=== PATIENT | female | born 1980 | race Caucasian/White ===

== ENCOUNTER 2022-04-04 13:52 | Emergency (ER) | payer OTHER ==
[~2022-04-04] VITALS: Ht 165.1 cm; Wt 120.2 kg
[~2022-04-04 13:52] MED LIST: CHROMIUM PICO400 MCG PO; DILAUDID2 MG PO; DOXYCYCLINE MO100 MG PO; IBUPROFEN600 MG PO; LEVSIN-SL0.125 MG SL; PSEUDOEPHEDRINE60 MG PO; SUMATRIPTAN SU100 MG PO; VITAMIN D250000 UNIT PO; [UNRECOGNIZED DRUG - OTHER]; [UNRECOGNIZED DRUG - OTHER] TOP
--- NOTE | 2022-04-05 20:09 | EKG ---
[facility] [address] [facility] [place], [place] [address] Signed Normal sinus rhythm Normal ECG No previous ECGs available Confirmed by BLIL CORTES MD ([id number]) on 04/05/2022 8:09:12 PM Electronically Signed By: BILL CORTES MD 04/05/222008 PATIENT NAME: ANTELMO GOULD Electrocardiogram DATE OF : 82 PHYSICIAN: BILL CORTES MD REPORT #: [id number] REPORT IS CONFIDENTIAL AND NOT TO BE RELEASED WITHOUT AUTHORIZATION
== END 2022-04-04 15:54 | disposition home or self-care (01) ==
LOC: ED 13:52
DX: G43.401 Hemiplegic migraine, not intractable, with status migrainosus (principal); Z87.891 Personal history of nicotine dependence; Z79.899 Other long term (current) drug therapy; Z88.5 Allergy status to narcotic agent; Z88.8 Allergy status to other drugs, medicaments and biological substances
CPT/HCPCS: 36415; 70450; 70496; 70498; 71045; 80053; 84484; 85025; 85060; 85610; 85730; 93005; 93010; J0780; J1100; J1200; J7030; Q9967

== ENCOUNTER 2023-03-18 07:40 | Day surgery (SDC) | payer OTHER ==
[2023-03-16 08:40] VITALS: BP 111/76
[2023-03-16 09:14] LABS: BILIRUBIN, URINE NEGATIVE (negative); BLOOD/HGB, URINE LARGE (Negative); KETONE, URINE NEGATIVE (Negative); LEUK ESTERASE, URINE LARGE (negative); NITRITE, URINE POSITIVE (negative)
[2023-03-16 09:31] LABS: BACTERIA, URINE 1+ /hpf (negative); CASTS, URINE NONE SEEN \\lpf; COLLECTION TYPE, URINE CLEAN CATCH; CRYSTALS, URINE NONE SEEN (0-1+); EPITHELIAL CELLS, URINE SQUAMOUS 3+ /lpf (0-1+); REFLEX CULTURE, URINE No (No); WHITE BLOOD CELLS, URINE 21-40 /HPF (0-5)
[~2023-03-18] VITALS: Ht 165.1 cm; Wt 98.0 kg
[2023-03-18 07:48] VITALS: BP 134/71
[2023-03-18] MEDS ORDERED: MECLIZINE HCL25 MG PO (08:03)
[2023-03-18] MEDS ORDERED: IBUPROFEN800 MG PO (08:04)
[2023-03-18] MEDS ORDERED: ONDANSETRON ODT8 MG PO (08:04)
[2023-03-18] MEDS ORDERED: PROBIOTIC1 EAC2 PO (08:05)
--- NOTE | 2023-03-18 08:59 | NUR ---
THIS RN TO ROOM TO CHECK ON PT. PT UPDATED ON EXPECTED TIME OF PROCEEDURE. PT VERBALIZES UNDERSTANDING AND STATES HER QUESTIONS HAVE BEEN ANSWERED. PT REPORTS DRY "FOAMY" MOUTH. MOUTH SWAB PROVIDED. NO ADDITONAL REQUESTS OR COMPLAINTS. CALL LIGHT WITHIN REACH. BED RAILS UP. FAMILY AT BEDSIDE.
--- NOTE | 2023-03-18 10:32 | NUR ---
03/18/23 1032 Chen Osullivan 1026- PT ARRIVES TO PACU NONAROUSABLE TO STIMULI. RESP EVEN AND UNLABORED. OXYGEN SAT LOW 90'S ON RA. 1032- PT PASSING FLATUS.
[2023-03-18 11:29] VITALS: BP 125/94
--- NOTE | 2023-03-18 12:58 | OR ---
[facility] [address] [place], [place] [address] Signed DATE OF OPERATION: 03/18/2023 SURGEON: Sophie Louis MD PREOPERATIVE DIAGNOSES: 1. Diarrhea. 2. Weight loss. 3. Anorexia. 4. Esophageal dysphagia. 5. Right upper quadrant abdominal pain with nausea and vomiting. 6. History of gastritis. 7. Minimal internal hemorrhoids. POSTOPERATIVE DIAGNOSES: 1. Mild distal gastritis. 2. Unremarkable colonoscopy. PROCEDURES: 1. EGD with CLOtest and biopsies of the duodenum, pyloric bulb, antrum, GE junction and midesophagus. 2. Colonoscopy with random cold biopsies. ESTIMATED BLOOD LOSS: None. INDICATIONS: Antelmo is a 43-year-old female, asked to see me for both upper and lower endoscopy. Please see her consult for the long list of details. Namely, she has had lifelong symptoms. It seemed to be worse the last six months to a year. She has been losing weight. She is actually fairly anxious about the whole situation. She also added THC about a year ago, which can actually exacerbate symptoms, which should be kept in mind. She has had an enormous workup with her primary care provider and other physicians. In fact, she went to her fur ironer in 2016. She had minimal gastritis and random biopsies from the colon were negative. She probably has just minimal internal hemorrhoids. I also helped her with upper endoscopy back in 2007 with minimal gastritis. In the office, I met with Antelmo and her . We had gone through this in great detail. I had reviewed enormous amounts of paperwork before she came. I gave them pamphlets on both upper and lower endoscopy. They are familiar with endoscopy. There is risk including, but not limited to gas bloating, crampy abdominal pain, bleeding, perforation requiring surgery, and missed diagnosis. We also reviewed the Electronically Signed By: SPOHIE LOUIS MD 03/18/23 1258 PATIENT NAME: ANTELMO GOULD OPERATIVE REPORT DATE OF : 82 REPORT #: [id number] PHYSICIAN: SOPHIE LOUIS MD PCP: SIENA BAIRD PA-C REPORT IS CONFIDENTIAL AND NOT TO BE RELEASED WITHOUT AUTHORIZATION [facility] [address] [place], [place] [address] Signed need for monitored anesthesia care given her long list of allergies and daily use of THC. They had expressed understanding and wished to proceed. PROCEDURE NOTE: Antelmo was taken into our endoscopy suite and placed in the supine semi-recumbent position. She was given monitored anesthesia care with propofol infusion per our nurse painting instructor. Ketamine was added as well. A bite block was utilized for the case. The adult gastroscope was introduced and advanced down the third portion of the duodenum without difficulty. The duodenum and pyloric channel looked unremarkable. We took biopsies in the duodenum and pyloric channel for pathologic review, mainly due the history of diarrhea. In the bottom of her antrum, she does have some very mild inflammatory changes as she has previously. We took biopsies of the antrum for CLOtest as well as pathologic review. Upon retroflexion of the scope, we really cannot see an obvious hiatal hernia. There were no gastric or esophageal varices. The scope was then withdrawn up through the area of GE junction, which was compliant without stricture. She had very little irritation around the Z-line. There was no Hunter's mucosa. There was no distal esophagitis. We took a biopsy along the edge of the Z-line for pathologic review. She has some issues with dysphagia, so we took a biopsy of the midesophagus as well. However, the distal, middle and upper esophagus looked unremarkable. After this, the gas was suctioned out and the gastroscope removed. She tolerated the upper endoscopy quite well. Antelmo was rotated into the left lateral decubitus position. She was maintained on monitored anesthesia care per our nurse painting instructor. A digital rectal exam was performed. This was unremarkable. She has no external hemorrhoids. No masses and good sphincter tone. The adult colonoscope had been introduced and advanced quite nicely up into the cecum itself. Her prep was good. We could easily see the appendiceal orifice and ileocecal valve. We tried several times to turn the scope up into the ileum without success. The scope was then slowly withdrawn. We took random biopsies in the right colon, transverse colon, and left colon due to her history of diarrhea. We saw no diverticula. There were no polyps. Upon retroflexion of the scope, really very little if any hemorrhoid tissue. After this, the gas was suctioned out and the colonoscope removed. Antelmo tolerated the procedure quite well. RECOMMENDATIONS: I will see Antelmo back in my office in 7 to 14 days to review her results. Her current endoscopy seems to be consistent with her previous endoscopies. Sophie Louis MD Electronically Signed By: SOPHIE LOUIS MD 03/18/23 1258 PATIENT NAME: ANTELMO GOULD OPERATIVE REPORT DATE OF : 82 REPORT #: [id number] PHYSICIAN: SOPHIE LOUIS MD PCP: SIENA BAIRD PA-C REPORT IS CONFIDENTIAL AND NOT TO BE RELEASED WITHOUT AUTHORIZATION [address] [place] [address] Signed ALB/MODL /[id number] cc: MD Siena Adams PA-C Copies: SOPHIE LOUIS MD, CHLOE K PA-C ~ Electronically Signed By: SOPHIE LOUIS MD 03/18/23 1258 PATIENT NAME: ANTELMO GOULD BERENICE OPERATIVE REPORT DATE OF : 82 REPORT #: [id number] PHYSICIAN: SOPHIE LOUIS MD PCP: SIENA BAIRD PA-C REPORT IS CONFIDENTIAL AND NOT TO BE RELEASED WITHOUT AUTHORIZATION
--- NOTE | 2023-03-22 11:44 | PATH ---
[facility] [address] [place], [place] [address] Signed SPECIMEN(S): A DUODENAL BIOPSY SPECIMEN(S): B PYLORIC BULB BIOPSY SPECIMEN(S): C GE JUNCTION BIOPSY SPECIMEN(S): D MID ESOPHAGEAL BIOPSY SPECIMEN(S): E ASCENDING/RIGHT COLON BIOPSY SPECIMEN(S): F TRANSVERSE COLON BIOPSY SPECIMEN(S): G DESCENDING/LEFT COLON BIOPSY SPECIMEN SOURCE: A. DUODENAL BIOPSY B. PYLORIC BULB BIOPSY C. GE JUNCTION BIOPSY D. MID ESOPHAGEAL BIOPSY E. ASCENDING/RIGHT COLON BIOPSY F. TRANSVERSE COLON BIOPSY G. DESCENDING/LEFT COLON BIOPSY CLINICAL HISTORY: Weight loss; esophageal dysphagia; RUQ abdominal pain; N + V; diarrhea. Post: Mild gastritis; unremarkable colon. FINAL PATHOLOGIC DIAGNOSIS: A. Duodenal biopsy: - Benign duodenal mucosa, negative for specific diagnostic abnormality. B. Pyloric bulb biopsy: - Benign duodenal mucosa, negative for specific diagnostic abnormality. C. GE junction biopsy: - Benign gastric-type mucosa with focal slight chronic inflammation. - Negative for specialized intestinal metaplasia or dysplasia. D. Mid esophageal biopsy: - Benign esophageal mucosa, negative for increased epithelial eosinophils. E. Ascending / right colon biopsy: - Benign colonic mucosa, negative for specific diagnostic abnormality. F. Transverse colon biopsy: - Benign colonic mucosa, negative for specific diagnostic abnormality. G. Descending / left colon biopsy: - Benign colonic mucosa, negative for specific diagnostic abnormality. JVR:[facility] MICROSCOPIC EXAMINATION: Histologic sections of all submitted blocks are examined by light microscopy. PATIENT NAME: ANTELMO DAVIS PATHOLOGY DATE OF : 82 REPORT #: [id number] PHYSICIAN: DAVID NIX PCP: KATERINA BAIRD PA-C REPORT IS CONFIDENTIAL AND NOT TO BE RELEASED WITHOUT AUTHORIZATION [facility] [address] [place], [place] [address] Signed These findings, together with the gross examination, support the pathologic diagnosis. GROSS DESCRIPTION: A. The specimen, labeled and designated "Miracle Davis, duodenum, (NOS) biopsy," is received in formalin and consists of 1 harris soft tissue fragment measuring 0.2 x 0.4 cm and submitted entirely in (A1). B. The specimen, labeled and designated "Miracle Davis, " and designated on the requisition "stomach antrum/pylorus pyloric bulb biopsy," is received in formalin and consists of 1 harris soft tissue fragment measuring 0.2 x 0.3 cm and submitted entirely in (B1). C. The specimen, labeled and designated "Miracle Davis, " and designated on the requisition "esophagus GE junction biopsy," is received in formalin and consists of 2 harris-brown soft tissue fragments measuring 0.2 to 0.8 cm x 0.3 cm in greatest dimension. Specimens are submitted entirely in (C1). D. The specimen, labeled and designated "Miracle Davis, " and designated on the requisition "esophagus midesophagus biopsy," is received in formalin and consists of 1 harris soft tissue fragment measuring 0.2 x 0.3 cm and submitted entirely in (D1). E. The specimen, labeled and designated "Miracle Davis, " and designated on the requisition "colon, ascending/right biopsy," is received in formalin and consists of 1 harris soft tissue fragment measuring 0.2 x 0.4 cm and submitted entirely in (E1). F. The specimen, labeled and designated "Miracle Davis, " and designated on the requisition "colon, transverse biopsy," is received in formalin and consists of 1 harris soft tissue fragment measuring 0.2 x 0.2 cm and submitted entirely in (F1). G. The specimen, labeled and designated "Miracle Davis, " and designated on the requisition "colon, descending/left biopsy," is received in formalin and consists of 2 harris soft tissue fragments measuring 0.2 x 0.3 cm in greatest dimension and submitted entirely in (G1). MMA (under the direct supervision of a pathologist) The Gross Description was prepared using a voice recognition system. The report was reviewed for accuracy; however, sound-alike word errors, addition and/or deletions may occur. If there is any question about this report, please contact Client Services. PERFORMING LABORATORY: PATIENT NAME: ANTELMO DAVIS PATHOLOGY DATE OF : 82 REPORT #: [id number] PHYSICIAN: DAVID NIX PCP: KATERINA BAIRD PA-C REPORT IS CONFIDENTIAL AND NOT TO BE RELEASED WITHOUT AUTHORIZATION [facility] [address] [place], [place] [address] Signed Technical component was performed by [facility], [address] [place] [id number] (CLIA# [id number]). Professional interpretation was performed by [facility], [address] [place], [place] [address]., [place] [address] (CLIA#: [id number]). Diagnostician: Edwin Monaco MD Pathologist Electronically Signed 03/22/2023 Copies: ~ PATIENT NAME: BRYANNAANTELMO PATHOLOGY DATE OF : 82 REPORT #: [id number] PHYSICIAN: DAVID NIX PCP: KATERINA BAIRD PA-C REPORT IS CONFIDENTIAL AND NOT TO BE RELEASED WITHOUT AUTHORIZATION
== END 2023-03-18 11:30 | disposition home or self-care (01) ==
LOC: OPS 07:40 → DS 07:40 → OPS 09:00 → DS 10:30 → OPS 11:30
PROVIDERS: ATTEND Colon & Rectal Surgery
PROC: 0DBL8ZX Excision of Transverse Colon, Via Natural or Artificial Opening Endoscopic, Diagnostic (ICD-10-PCS; 2023-03-18)
PROC: 0DB98ZX Excision of Duodenum, Via Natural or Artificial Opening Endoscopic, Diagnostic (ICD-10-PCS; principal; 2023-03-18 09:00)
PROC: 0DBG8ZX Excision of Left Large Intestine, Via Natural or Artificial Opening Endoscopic, Diagnostic (ICD-10-PCS; 2023-03-18 09:00)
DX: K29.70 Gastritis, unspecified, without bleeding (principal); R13.10 Dysphagia, unspecified; K64.8 Other hemorrhoids; R19.7 Diarrhea, unspecified; R63.4 Abnormal weight loss; R63.0 Anorexia; E78.5 Hyperlipidemia, unspecified; K76.0 Fatty (change of) liver, not elsewhere classified; G43.909 Migraine, unspecified, not intractable, without status migrainosus; H81.09 Meniere's disease, unspecified ear; Z88.5 Allergy status to narcotic agent
CPT/HCPCS: 00813; 36415; 81001; 87077; J2001; J2704; J3490; J7121

== ENCOUNTER 2023-05-24 09:39 | Day surgery (SDC) | payer OTHER ==
[~2023-05-24 09:39] MED LIST changes: +IBUPROFEN800 MG PO; +MECLIZINE HCL25 MG PO; +ONDANSETRON ODT8 MG PO; +PROBIOTIC1 EAC2 PO
--- NOTE | 2023-05-25 13:13 | OR ---
[facility] [address] [place], [place] [address] Signed DATE OF OPERATION: 05/24/2023 SURGEON: Gilma Robbins MD PREOPERATIVE DIAGNOSIS: Left isthmus 1.5 cm nodule, TIRADS category 4. POSTOPERATIVE DIAGNOSIS: Left isthmus 1.5 cm nodule, TIRADS category 4. PROCEDURE: Ultrasound-guided fine-needle aspiration biopsy left isthmus thyroid nodule. ANESTHESIA: Local anesthetic 1% lidocaine 2 mL. INDICATIONS: This 43-year-old woman is a patient of Dr. Figueroa and the patient is noted to have had a nodule of the left isthmus. She has been followed overtime. It was initially identified in 2016 and recent followup on May 05, 2023, confirmed a 1.5 cm lobulated solid nodule of the isthmus. The right and left lobe showed no abnormalities. 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 The nodule of the isthmus is 0.7 x 1.0 x 1.5 cm, previously 1.3 cm on December 16, 2021 and 1.0 cm in 2018. The nodule was considered TIRADS category 4. She has been offered ultrasound-guided fine-needle aspiration biopsy as the nodule was not palpable on clinical examination. The risk of bleeding, infection, and other unforeseen complications including failure of diagnosis and misdiagnosis were all reviewed with the patient and her . They understand and wished to proceed. FINDINGS: The nodule was easily identified. Direct access of the nodule with 22-gauge needle under ultrasound guidance allowed for good specimen collection. DESCRIPTION OF PROCEDURE: In the day surgery room, the patient was placed in a supine position with a pillow beneath the shoulders allowing for good neck extension. Examination of the neck with a SonFamilyticte ultrasound device confirmed the nodule in the left isthmus as expected. The right and left lobes of the thyroid were entirely normal from my examination. The neck was then prepared with a chlorhexidine solution and draped sterilely. Using Electronically Signed By: GILMA ROBBINS MD 05/25/23 1313 PATIENT NAME: ANTELMO GOULD OPERATIVE REPORT DATE OF : 82 REPORT #: [id number] PHYSICIAN: GILMA ROBBINS MD PCP: MIGNON FIGUEROA MD REPORT IS CONFIDENTIAL AND NOT TO BE RELEASED WITHOUT AUTHORIZATION [facility] [address] [place] [address] Signed sterile glove, gown and so forth, 1% lidocaine was injected into the area anticipated for needle application. A sterile sleeve was applied to the SonoSite device. Under direct ultrasonographic guidance, needle was carefully passed into the nodule itself and multiple passes with the needle were undertaken. The patient does have underlying anxiety, though remained comfortable during the procedure. Another similar such biopsy was undertaken providing more cellular tissue for the specimen collection device. There were no signs of complication or other problem. A Band-Aid was applied. She tolerated the procedure well. MD NATALEE Sprague/SHERINE /[id number] cc: Mignon Figueroa MD Copies: ~ Electronically Signed By: GILMA ROBBINS MD 05/25/23 1313 PATIENT NAME: ANTELMO GOULD OPERATIVE REPORT DATE OF : 82 REPORT #: [id number] PHYSICIAN: GILMA ROBBINS MD PCP: MIGNON FIGUEROA MD REPORT IS CONFIDENTIAL AND NOT TO BE RELEASED WITHOUT AUTHORIZATION
== END 2023-05-24 11:15 | disposition home or self-care (01) ==
LOC: OPS 09:39 → DS 09:46 → OPS 10:30 → OPV-DS 11:15 → EDSTATUS 11:15 → OPS 12:00
PROVIDERS: ATTEND Surgery
PROC: 0GBG3ZX Excision of Left Thyroid Gland Lobe, Percutaneous Approach, Diagnostic (ICD-10-PCS; principal; 2023-05-24)
DX: E04.1 Nontoxic single thyroid nodule (principal); Z88.8 Allergy status to other drugs, medicaments and biological substances; Z90.710 Acquired absence of both cervix and uterus

== ENCOUNTER 2025-04-30 06:35 | Emergency (ER) | payer OTHER, MEDICARE ==
[~2025-04-30] VITALS: Ht 165.1 cm; Wt 99.0 kg
[2025-04-30] MEDS ORDERED: CELEBREX200 MG PO ×3 (07:31→08:07)
[2025-04-30] MEDS ORDERED: HYDROCODON-ACE1 EA10 PO (07:31)
[2025-04-30] MEDS ORDERED: HYDROCODONE BIT/ACETAMINOPHEN 5/325 MG 1 TAB HOME.PACK PO ONE (07:45)
[2025-04-30 08:15] VITALS: BP 132/85
== END 2025-04-30 08:11 | disposition home or self-care (01) ==
LOC: ED 06:35
DX: S83.91XA Sprain of unspecified site of right knee, initial encounter (principal); S93.602A Unspecified sprain of left foot, initial encounter; S80.11XA Contusion of right lower leg, initial encounter; Z91.013 Allergy to seafood; Z88.8 Allergy status to other drugs, medicaments and biological substances; Z88.5 Allergy status to narcotic agent; Z79.899 Other long term (current) drug therapy; W18.30XA Fall on same level, unspecified, initial encounter; Y93.K1 Activity, walking an animal
CPT/HCPCS: 73560; 73590; 73630; 99283